=== PATIENT | male | born 1950 | race Caucasian/White ===

== ENCOUNTER 2018-03-14 07:30 | Inpatient (IN) | payer OTHER ==
[~2018-03-14] VITALS: Ht 175.3 cm; Wt 81.6 kg
[2018-03-14] MEDS ORDERED: ALTACE10 MG PO (09:45)
[2018-03-14] MEDS ORDERED: METFORMIN HCL850 MG PO (09:45)
[2018-03-14] MEDS ORDERED: HYDROCHLOROTH12.5 M1 PO (09:45)
[2018-03-14] MEDS ORDERED: ZOCOR40 MG PO (09:46)
== END 2018-04-03 17:39 | disposition home or self-care (01) | DRG 330 ==
LOC: SURH 03-21 06:10 → O/R 03-21 06:10 → SURH 03-21 13:55
PROVIDERS: Surgery
PROC: 07TC4ZZ Resection of Pelvis Lymphatic, Percutaneous Endoscopic Approach (ICD-10-PCS; 2018-03-21)
PROC: 3E0336Z Introduction of Nutritional Substance into Peripheral Vein, Percutaneous Approach (ICD-10-PCS; 2018-03-21)
PROC: 0DTF4ZZ Resection of Right Large Intestine, Percutaneous Endoscopic Approach (ICD-10-PCS; principal; 2018-03-21 07:00)
PROC: 02HV33Z Insertion of Infusion Device into Superior Vena Cava, Percutaneous Approach (ICD-10-PCS; 2018-03-23)
PROC: BW25Y0Z Computerized Tomography (CT Scan) of Chest, Abdomen and Pelvis using Other Contrast, Unenhanced and Enhanced (ICD-10-PCS; 2018-03-28)
DX: D12.0 Benign neoplasm of cecum (principal); K56.0 Paralytic ileus; K91.89 Other postprocedural complications and disorders of digestive system; R59.0 Localized enlarged lymph nodes; E11.9 Type 2 diabetes mellitus without complications; I11.9 Hypertensive heart disease without heart failure